=== PATIENT | male | born 1970 | race Caucasian/White ===

== ENCOUNTER 2022-04-10 07:48 | Inpatient (IN) | payer OTHER ==
[~2022-04-10] VITALS: Ht 175.3 cm; Wt 103.6 kg
[2022-04-10] MEDS ORDERED: ASPirin 81 mg TAB PO ONE (08:30)
[2022-04-10] MEDS ORDERED: METOCLOPRAMIDE HCL 5MG/ml INJ 2ml VIAL IV ONE (08:30)
[2022-04-10] MEDS ORDERED: KETOROLAC TROMETH 30 MG/ML 1ML VIAL IV ONE (08:30)
[2022-04-10 08:55] LABS: Basophils # (auto) 0 10 ^3/uL (0-0.2); Basophils % (auto) 0.9 % (0.0-2.0); Eosinophils # (auto) 0.2 10 ^3/uL (0-0.8); Eosinophils % (auto) 4.5 % (0.0-7.0); Hematocrit 45.4 % (41.0-53.0); Hemoglobin 15.1 g/dL (13.5-17.5); Lymphocytes # (auto) 2.5 10 ^3/uL (0.4-5.4); Lymphocytes % (auto) 50.1 % (10.0-50.0); Mean Corpuscular Hemoglobin 27.9 pg (28.0-32.0); Mean Corpuscular Hgb Conc. 33.3 g/dL (32.0-36.0); Mean Corpuscular Volume 83.8 fL (80.0-100.0); Monocytes # (auto) 0.4 10 ^3/uL (0-1.3); Monocytes % (auto) 7.3 % (0.0-12.0); Neutrophils # (auto) 1.8 10 ^3/uL (1.6-8.6); Neutrophils % (auto) 37.2 % (37.0-80.0); Nucleated Red Blood Cells % 0.3 %; Red Blood Cells 5.42 10^6/uL (4.5-5.90); Red Cell Distribution Width 14.1 % (11.8-14.3)
[2022-04-10 09:04] LABS: Calcium 8.8 mg/dL (8.5-10.1); Potassium 3.8 mmol/L (3.5-5.1)
[2022-04-10 09:13] LABS: BUN/Creatinine Ratio 20.8; Bilirubin, Total 0.7 mg/dL (0.2-1.0); Total Protein 7.1 g/dL (6.4-8.2)
[2022-04-10] MEDS ORDERED: ONDANSETRON HCL 4 MG/2 ML VIAL IV ONE (09:45)
[2022-04-10] MEDS ORDERED: MORPHINE SULFATE INJ 2 MG/ml SYRG IV ONE (09:45)
[2022-04-10 12:45] LABS: Urine Bacteria NONE SEEN /hpf (None Seen); Urine Blood Negative /uL (Negative); Urine Mucus FEW (None Seen); Urine WBC <1 /hpf (0 - 3)
[2022-04-10] MEDS ORDERED: INSULIN LISPRO (HUMAN) 100 UNITS/ML ML SC ONE (13:45)
[2022-04-10] MEDS ORDERED: ENOXAPARIN SOD 60 MG/0.6 ML SYRINGE SC ONE (14:30)
[2022-04-10] MEDS ORDERED: ONDANSETRON HCL 4 MG/2 ML VIAL IV PRN (16:30)
[2022-04-10] MEDS ORDERED: NITROGLYCERIN 0.2MG/HR TOPICAL PATCH TD ONE (16:30)
[2022-04-10] MEDS ORDERED: SODIUM CHLORIDE 0.9% 2,000 ML IV ONE (16:30)
[2022-04-10] MEDS ORDERED: hydrALAZINE HCL 20 MG/ML VL IV PRN (16:30)
[2022-04-10] MEDS ORDERED: DEXTROSE (50%) 50ML SYRG IV PRN (16:30)
[2022-04-10] MEDS ORDERED: NITROGLYCERIN 0.4 MG SL TAB SL PRN (16:30)
[2022-04-10] MEDS ORDERED: MORPHINE SULFATE INJ 2 MG/ml SYRG IV PRN (16:30)
[2022-04-10 17:07] LABS: Cholesterol 196 mg/dL (< 200); Triglycerides 784 mg/dL (< 150)
[2022-04-10 17:09] LABS: HDL Cholesterol 23 mg/dL (40-59)
[2022-04-10] MEDS: ACCU-CHEK COMFORT CURVE STRIP VI SCH ×2 (17:10→22:28)
[2022-04-10] MEDS: InsuLIN REG 1unit/0.01ml Soln (100units/ml) SC SCH ×2 (17:13→22:37)
[2022-04-10 19:12] VITALS: BP 98/72
[2022-04-10] MEDS ORDERED: METF-489 PO (19:13)
[2022-04-10 22:30] VITALS: BP 98/72
[2022-04-11] VITALS (8 sets, daily range): BP systolic 100–132; BP diastolic 66–79
[2022-04-11 05:27] LABS: Albumin 3.7 g/dL (3.4-5.0); BUN/Creatinine Ratio 19.6; Calcium 8.7 mg/dL (8.5-10.1); Potassium 4.4 mmol/L (3.5-5.1)
[2022-04-11 05:30] LABS: Bilirubin, Total 0.7 mg/dL (0.2-1.0); Total Protein 6.6 g/dL (6.4-8.2)
[2022-04-11 05:33] LABS: Basophils # (auto) 0 10 ^3/uL (0-0.2); Basophils % (auto) 0.5 % (0.0-2.0); Eosinophils # (auto) 0.1 10 ^3/uL (0-0.8); Eosinophils % (auto) 1.9 % (0.0-7.0); Hemoglobin 13.7 g/dL (13.5-17.5); Lymphocytes # (auto) 1.5 10 ^3/uL (0.4-5.4); Lymphocytes % (auto) 21.3 % (10.0-50.0); Mean Corpuscular Hemoglobin 29.4 pg (28.0-32.0); Mean Corpuscular Hgb Conc. 35.2 g/dL (32.0-36.0); Mean Corpuscular Volume 83.6 fL (80.0-100.0); Monocytes # (auto) 0.4 10 ^3/uL (0-1.3); Monocytes % (auto) 5.6 % (0.0-12.0); Neutrophils % (auto) 70.7 % (37.0-80.0); Nucleated Red Blood Cells % 0.1 %; Red Blood Cells 4.66 10^6/uL (4.5-5.90); Red Cell Distribution Width 14.4 % (11.8-14.3); White Blood Cell 7.1 10^3/uL (4.4-10.8)
[2022-04-11] MEDS: ACCU-CHEK COMFORT CURVE STRIP VI SCH ×4 (06:26→22:00)
[2022-04-11] MEDS: InsuLIN REG 1unit/0.01ml Soln (100units/ml) SC SCH ×4 (06:26→22:00)
[2022-04-11] MEDS ORDERED: IBUPROFEN 800 MG TAB PO ONE ×3 (09:45→10:15)
[2022-04-11] MEDS ORDERED: ACETAMINOPHEN 500 MG TAB PO PRN (09:45)
[2022-04-11] MEDS ORDERED: ENOXAPARIN SOD 40 MG/0.4 ML SYRINGE SC SCH (10:00)
[2022-04-11 12:02] LABS: INR 0.97 (0.9-1.15)
[2022-04-11] MEDS ORDERED: IOHEXOL 350 MG/ML 100ML IJ ONE (12:18)
[2022-04-11] MEDS ORDERED: LIDOCAINE 2%HCL (LOCAL ANESTH.) INJ 10ml MDV ONE (12:18)
[2022-04-11] MEDS ORDERED: HEPARIN SODIUM (PORCINE) 5000 UNITS/ML 1ML VIAL ONE (14:02)
[2022-04-11] MEDS ORDERED: fentaNYL CITRATE 100 MCG/2 ML VL ONE (14:03)
[2022-04-11] MEDS ORDERED: MIDAZOLAM HCL 2MG/2ML 2ml VIAL (1mg/ml) ONE (14:03)
[2022-04-11] MEDS ORDERED: VERAPAMIL 2.5MG/ML INJ 2ML VIAL IV ONE (14:03)
[2022-04-11] MEDS ORDERED: TICAGRELOR 90 MG TAB ONE (14:58)
[2022-04-11] MEDS ORDERED: ATORVASTATIN 20 MG TAB PO SCH (22:00)
[2022-04-11] MEDS: SODIUM CHLOR 0.9% PF (SALINE LOCK) 10ML VIAL/SYR IV SCH (22:00)
[2022-04-12] MEDS ORDERED: ALPRAZolam 0.25 MG TAB PO ONE (01:00)
[2022-04-12 05:00] VITALS: BP 113/81
[2022-04-12] MEDS: SODIUM CHLOR 0.9% PF (SALINE LOCK) 10ML VIAL/SYR IV SCH (05:59)
[2022-04-12] MEDS: ACCU-CHEK COMFORT CURVE STRIP VI SCH ×2 (06:10→12:18)
[2022-04-12] MEDS: InsuLIN REG 1unit/0.01ml Soln (100units/ml) SC SCH ×2 (06:12→12:18)
[2022-04-12 08:00] VITALS: BP 131/82
[2022-04-12 08:14] LABS: BUN/Creatinine Ratio 13.3; Calcium 8.8 mg/dL (8.5-10.1); Potassium 3.9 mmol/L (3.5-5.1)
[2022-04-12 08:59] VITALS: BP 131/82
[2022-04-12] MEDS ORDERED: ASPirin 81 mg TAB PO SCH (10:00)
[2022-04-12] MEDS ORDERED: TICAGRELOR 90 MG TAB PO SCH (10:00)
[2022-04-12] MEDS ORDERED: METO25TA5 PO (10:53)
[2022-04-12] MEDS ORDERED: LISI20TA28 PO (10:53)
[2022-04-12] MEDS ORDERED: ATO40T PO (10:53)
[2022-04-12] MEDS ORDERED: TICA90TA PO (10:53)
[2022-04-12] MEDS ORDERED: ASPI81CH74 PO (10:53)
[2022-04-12 11:36] VITALS: BP 131/82
== END 2022-04-12 13:48 | disposition home or self-care (01) | DRG 246 ==
LOC: ER 07:48 → TELE 16:38 → TELE-WESTW 18:45
PROVIDERS: ADMIT Registered Nurse; ATTEND Family Medicine
PROC: B2111ZZ Fluoroscopy of Multiple Coronary Arteries using Low Osmolar Contrast (ICD-10-PCS; principal; 2022-04-11)
PROC: 027034Z Dilation of Coronary Artery, One Artery with Drug-eluting Intraluminal Device, Percutaneous Approach (ICD-10-PCS; 2022-04-11)
PROC: B2151ZZ Fluoroscopy of Left Heart using Low Osmolar Contrast (ICD-10-PCS; 2022-04-11)
PROC: 4A023N7 Measurement of Cardiac Sampling and Pressure, Left Heart, Percutaneous Approach (ICD-10-PCS; 2022-04-11)
DX: I21.4 Non-ST elevation (NSTEMI) myocardial infarction (principal); I50.41 Acute combined systolic (congestive) and diastolic (congestive) heart failure; I25.10 Atherosclerotic heart disease of native coronary artery without angina pectoris; I24.9 Acute ischemic heart disease, unspecified; E11.65 Type 2 diabetes mellitus with hyperglycemia; G47.33 Obstructive sleep apnea (adult) (pediatric); R82.4 Acetonuria; R81 Glycosuria; E66.01 Morbid (severe) obesity due to excess calories; Z20.822 Contact with and (suspected) exposure to COVID-19; Z82.49 Family history of ischemic heart disease and other diseases of the circulatory system; Z83.438 Family history of other disorder of lipoprotein metabolism and other lipidemia; Z98.890 Other specified postprocedural states; Z68.33 Body mass index [BMI] 33.0-33.9, adult
CPT/HCPCS: 36415; 71046; 80048; 80053; 80061; 81001; 82962; 83036; 83880; 84443; 84484; 85025; 85610; 92928; 93005; 93306; 93458; 96361; 96374; 96375; 99152; 99153; C1874; G0378; J1815; J1885; J2001; J2250; J2405